=== PATIENT | male | born 1975 | race Two or more races ===

== ENCOUNTER 2019-05-31 17:32 | Emergency (ER) | payer OTHER ==
[~2019-05-31] VITALS: Ht 170.2 cm; Wt 85.7 kg
[2019-05-31] MEDS ORDERED: AMLODIPINE BESYL5 MG (18:10)
[2019-05-31] MEDS ORDERED: CALCIUM500 M2 (18:10)
[2019-05-31] MEDS ORDERED: NEURONTIN300 MG (18:10)
[2019-05-31] MEDS ORDERED: ATORVASTATIN CA10 MG (18:10)
[2019-05-31] MEDS ORDERED: GABAPENTIN400 MG (18:11)
[2019-05-31] MEDS ORDERED: HYDRALAZINE HCL50 MG (18:11)
[2019-05-31] MEDS ORDERED: LISINOPRIL10 MG (18:11)
[2019-05-31] MEDS ORDERED: PANTOPRAZOLE SO40 MG (18:12)
== END 2019-05-31 21:15 ==
LOC: ER 17:32
DX: T87.89 Other complications of amputation stump (principal); T87.81 Dehiscence of amputation stump; Z89.512 Acquired absence of left leg below knee

== ENCOUNTER 2021-01-16 22:13 | Emergency (ER) | payer OTHER ==
[~2021-01-16] VITALS: Ht 170.2 cm; Wt 95.3 kg
[~2021-01-16 22:13] MED LIST: AMLODIPINE BESYL5 MG; ATORVASTATIN CA10 MG; CALCIUM500 M2; GABAPENTIN400 MG; HYDRALAZINE HCL50 MG; LISINOPRIL10 MG; NEURONTIN300 MG; PANTOPRAZOLE SO40 MG
== END 2021-01-17 01:03 | disposition home or self-care (01) ==
LOC: ER 22:13
DX: S93.491A Sprain of other ligament of right ankle, initial encounter (principal); M25.551 Pain in right hip; W18.39XA Other fall on same level, initial encounter; Y93.89 Activity, other specified; Y92.018 Other place in single-family (private) house as the place of occurrence of the external cause; Y99.8 Other external cause status

== ENCOUNTER → 2021-03-23 | Emergency (ER) | payer OTHER ==
[~2021-03-23] VITALS: Ht 170.2 cm; Wt 104.3 kg
== END | disposition home or self-care (01) ==
LOC: ER 10:47
DX: R07.89 Other chest pain (principal); R06.02 Shortness of breath; N18.6 End stage renal disease; I12.0 Hypertensive chronic kidney disease with stage 5 chronic kidney disease or end stage renal disease; E11.22 Type 2 diabetes mellitus with diabetic chronic kidney disease; E11.40 Type 2 diabetes mellitus with diabetic neuropathy, unspecified; E78.49 Other hyperlipidemia; K21.9 Gastro-esophageal reflux disease without esophagitis; Z99.2 Dependence on renal dialysis; Z79.4 Long term (current) use of insulin

== ENCOUNTER 2021-06-18 14:34 | Inpatient (IN) | payer OTHER ==
[~2021-06-18] VITALS: Ht 170.2 cm; Wt 86.2 kg
[2021-06-18] MEDS ORDERED: LANTUS SOL100 UNIT/1 (14:54)
== END 2021-06-28 11:32 | disposition home or self-care (01) | DRG 638 ==
LOC: ER 14:34 → MEDJ 23:03
PROVIDERS: ADMIT Internal Medicine; ATTEND Internal Medicine
PROC: 5A1D70Z Performance of Urinary Filtration, Intermittent, Less than 6 Hours Per Day (ICD-10-PCS; principal; 2021-06-20)
DX: E11.621 Type 2 diabetes mellitus with foot ulcer (principal); L97.418 Non-pressure chronic ulcer of right heel and midfoot with other specified severity; I13.11 Hypertensive heart and chronic kidney disease without heart failure, with stage 5 chronic kidney disease, or end stage renal disease; L97.518 Non-pressure chronic ulcer of other part of right foot with other specified severity; L03.115 Cellulitis of right lower limb; N18.6 End stage renal disease; E11.22 Type 2 diabetes mellitus with diabetic chronic kidney disease; Z99.2 Dependence on renal dialysis; Z79.4 Long term (current) use of insulin; E11.40 Type 2 diabetes mellitus with diabetic neuropathy, unspecified; E11.65 Type 2 diabetes mellitus with hyperglycemia; R21 Rash and other nonspecific skin eruption; U09.9 Post COVID-19 condition, unspecified
CPT/HCPCS: 73221

== ENCOUNTER → 2022-08-30 | Emergency (ER) | payer OTHER ==
[~2022-08-30] VITALS: Ht 170.2 cm; Wt 86.2 kg
[~2022-08-30] MED LIST changes: +LANTUS SOL100 UNIT/1
== END | disposition designated cancer center or children's hospital (05) ==
LOC: ER 20:32
DX: N28.89 Other specified disorders of kidney and ureter (principal); E11.22 Type 2 diabetes mellitus with diabetic chronic kidney disease; N18.6 End stage renal disease; Z99.2 Dependence on renal dialysis; Z79.4 Long term (current) use of insulin; Z20.822 Contact with and (suspected) exposure to COVID-19